=== PATIENT | female | born 2005 | race Caucasian/White ===

== ENCOUNTER 2024-09-15 23:20 | Emergency (ER) | payer MEDICAID, SELFPAY ==
[2024-09-15 23:21] VITALS: BMI 18.8
[2024-09-15 23:28] VITALS: BP 115/70; PULSE 86; RESP 18; TEMP 36.9; O2SAT 97
--- NOTE | 2024-09-15 23:38 | EDNOTE_ITS ---
<Statement entered by Izabella Lin MD - 09/16/24 22:04> As co-signing physician, I was present and available for consult prn. I concur with the plan and care as documented by the midlevel provider. Nausea/Vomit./Diarrhea-RME/HPI General Chief complaint: Nausea/Vomiting/Diarrhea Stated complaint: VOMITING Time Seen by Provider: 09/15/24 23:35 Source: patient Arrival date/time: 09/15/24 23:20 19-year-old female presents emergency department complaining of diffuse abdominal pain with nausea and vomiting has been ongoing for 2 days. Mode of arrival: ambulatory Limitations: no limitations Related Data Previous Rx's ?Medication ?Instructions ?Recorded ibuprofen 600 mg tablet 600 mg PO Q8H PRN pain #20 tabs 09/16/24 ondansetron 4 mg disintegrating 4 mg PO Q8H PRN nausea and 09/16/24 tablet vomiting #10 tabs Allergies Allergy/AdvReac Type Severity Reaction Status Date / Time Iodinated Contrast Media Allergy Verified 07/19/23 22:30 iodine Allergy Verified 07/19/23 22:30 Review of Systems Review of Systems Systems Reviewed: All systems reviewed, normal except as documented Constitutional Constitutional: Reports system reviewed and no additional complaints, except as documented, Denies body ache(s), Denies chills and Denies fever(s) Eyes Eyes: Reports system reviewed and no additional complaints, except as documented and Denies change in vision ENT Ears, Nose, Mouth, and Throat: Reports system reviewed and no additional complaints, except as documented, Denies disequilibrium, Denies dizziness, Denies sore throat and Denies vertigo Cardiovascular Cardiovascular: Reports system reviewed and no additional complaints, except as documented, Denies chest pain and Denies dyspnea Respiratory Respiratory: Reports system reviewed and no additional complaints, except as documented, Denies chest congestion, Denies cough and Denies dyspnea Gastrointestinal Gastrointestinal: Reports system reviewed and no additional complaints, except as documented, Reports abdominal pain, Reports nausea and Reports vomiting Musculoskeletal Musculoskeletal: Reports system reviewed and no additional complaints, except as documented, Denies abnormal gait and Denies arthralgias Integumentary/Breasts Skin/Breast: Reports system reviewed and no additional complaints, except as documented, Denies erythema, Denies rash and Denies wounds Neurologic Neurologic: Reports system reviewed and no additional complaints, except as documented, Denies abnormal gait, Denies disequilibrium, Denies dizziness and Denies vertigo Past Medical History Social History SMOKING STATUS: Never smoker ED Exam General Limitations: Present no limitations General appearance: Present alert and in no apparent distress Head Head exam: Present atraumatic Eye Eye exam: Present normal appearance, PERRL and EOMI ENT ENT exam: Present normal exam, normal oropharynx and mucous membranes moist Neck Neck exam: Present normal inspection, full ROM and trachea midline Chest Chest inspection: Present normal inspection and symmetric chest wall rise Respiratory Respiratory exam: Present normal lung sounds bilaterally Cardiovascular Cardiovascular exam: Present regular rate, normal rhythm and normal heart sounds Abdominal Exam Abdominal exam: Present soft and normal bowel sounds; Absent tenderness, Robert's sign or tenderness at McBurney's Point Extremities Exam Extremities exam: Present normal inspection and full ROM Back Exam Back exam: Present normal inspection and full ROM Neurological Exam Neurological exam: Present alert, oriented X3 and CN II-XII intact Psychiatric Psychiatric exam: Present normal affect and normal mood Skin Skin exam: Present warm, dry, intact and normal color Course Quality Measures none Orders Category Date Time Status CBC Stat Lab 09/15/24 23:58 Completed CMP [Comprehensive Metabolic Panel] Stat Lab 09/15/24 23:58 Completed Drug Screen,Urine Stat Lab 09/16/24 01:21 Completed HCG,Qualitative Serum Stat Lab 09/15/24 23:58 Completed Lipase Stat Lab 09/15/24 23:58 Completed Urinalysis, C/S if Indicated Stat Lab 09/16/24 01:21 Completed Ibuprofen Susp [Motrin Susp] Med 09/16/24 01:15 Discontinued 544 mg PO X1 ONE Ondansetron Odt [Zofran Odt] Med 09/15/24 23:39 Discontinued 4 mg PO X1 ONE Vital Signs Vital signs: Vital Signs Temperature 98.5 F 09/15/24 23:28 Pulse Rate 86 09/15/24 23:28 Respiratory Rate 18 09/15/24 23:28 Blood Pressure 115/70 09/15/24 23:28 Pulse Oximetry (%) 97 09/15/24 23:28 Oxygen Delivery Method Room Air 09/15/24 23:28 97% room air within normal limits Nausea/Vomiting/Diarrhea MDM Narrative MDM Narrative:: 19-year-old female presents emergency department complaining of diffuse abdominal pain with nausea and vomiting has been ongoing for 2 days. Patient's abdomen is soft and nontender. Patient appears nontoxic and is hemodynamically stable. CBC was unremarkable for any leukocytosis. CMP was unremarkable for any elevated LFTs or gross electrolyte abnormalities. Urinalysis was unremarkable. Likely viral gastroenteritis. Patient given Zofran for nausea and Motrin for pain and reported improvement in symptoms. Patient discharged instructed to follow-up with primary care provider return to emergency department for any worsening symptoms or as needed Patient data External records reviewed:: [facility] previous records Clinical information provided by:: patient and parent Social determinants that could affect healthcare access:: none Patient has the following chronic illnesses:: N/A How is presenting disease/condition affected by chronic disease/condition?: no chronic disease Evaluation data The following diagnostics were reviewed and interpreted by me:: lab results Lab and/or radiology exams considered but not ordered:: Ordered Interpretation Summary: Interpreted by me Medications / Prescriptions Medications / Prescriptions considered but not ordered:: Ordered Medication administrations:: Medication Administration History Discontinued Medications Ibuprofen (Ibuprofen Susp 100 Mg/[address] [facility] [place]) 544 mg 10 mg/kg (544 mg) PO X1 ONE Stop: 09/16/24 01:16 Last Admin: 09/16/24 01:18 Dose: 544 mg Documented By: CVL Ondansetron HCl (Ondansetron Odt 4 Mg Tabrap) 4 mg PO X1 ONE; Protocol Stop: 09/15/24 23:40 Last Admin: 09/15/24 23:59 Dose: 4 mg Documented By: CVL Given Consultations Consultation(s) initiated? (list below): No Diagnosis Nausea Differential Diagnosis: traveler's diarrhea, food poisoning, gastroenteritis, clostridium difficile infection, drug-induced nausea and vomiting and dehydration Most likely diagnosis given after review of the tests above:: Gastroenteritis Admission Indicated Admission indicated?: not indicated Admission Request Was there a request for admission?: No Disposition Plan Disposition Plan: Discharge Discharge Attestation Discharge Attestation: The patient and all family members were given an opportunity to ask questions and understood the discharge instructions. Discharge instructions specifically effects, indications for sooner follow up or return to the emergency department, and the expected course of current diagnosis. Patient condition: Stable Discharge Plan Plan Patient Disposition: HOME (Self Care) Disposition Comment: Stable Prescriptions/Referrals Prescriptions/Med Rec: New ibuprofen 600 mg tablet 600 mg PO Q8H PRN (Reason: pain) Qty: 20 0RF ondansetron 4 mg tablet,disintegrating 4 mg PO Q8H PRN (Reason: nausea and vomiting) Qty: 10 0RF Referrals: No Primary/Family,Physician [Primary Care Provider] - In 1 week Problem List Clinical Impression: Gastroenteritis Patient/Caregiver Discharge Instructions Discharge Activity: activity as tolerated Education Materials: ED Diet for Vomiting or ..., ED Gastroenteritis, Noninfectious Additional Instructions: Encourage fluids as tolerated. Take medication as prescribed. Follow-up with primary care provider in 24 to 48 hours. Return to emergency department for any worsening symptoms or as needed Print Language: Japanese Stand Alone Forms: Steff Award Info., Patient Portal Info Letter PA/FIRING PIN GAUGER Supervising Physician PA/FIRING PIN GAUGER Supervising Physician: Dr. Lin
[2024-09-15] MEDS: ONDANSETRON ODT 4 MG TABRAP PO (23:59)
[2024-09-16 00:22] LABS: Basophils % (Auto) 0 % (0-2.5); Eosinophils # (Auto) 0.1 Thou/mm3 (0.0-0.5); Eosinophils % (Auto) 1 % (0-10); Hematocrit 34.7 % (36.0-46.0); Hemoglobin 11.8 g/dL (12.0-16.0); Immature Granulocytes % (Auto) 0 % (0-0); Immature Granulocytes Auto 0.03 Thou/mm3 (0.00-0.00); Lymphocytes # (Auto) 1.2 Thou/mm3 (1.0-4.8); Lymphocytes % (Auto) 16 % (10-50); Mean Corpuscular Hemoglobin 28.1 pg (25.0-35.0); Mean Corpuscular Volume 83 fL (80-100); Monocytes # (Auto) 0.4 Thou/mm3 (0.0-0.8); Monocytes % (Auto) 5 % (0-12); Neutrophils # (Auto) 5.6 Thou/mm3 (1.8-7.7); Neutrophils % (Auto) 77 % (37-80); Nucleated Red Blood Cell % 0 /100 WBC (0); Platelet Count 303 Thou/mm3 (140-440); RDW Standard Deviation 38.8 fL (36.4-46.3); White Blood Count 7.2 Thou/mm3 (4.5-11.0)
[2024-09-16 00:43] LABS: Alanine Aminotransferase 15 U/L (10-49); Albumin/Globulin Ratio 2.1 (1.2-2.2); Alkaline Phosphatase 99 U/L (46-116); Anion Gap 10 (7-16); Aspartate Amino Transferase 18 U/L (0-34); BUN/Creatinine Ratio 19 Ratio (12-20); Bilirubin,Total 0.6 mg/dL (0.3-1.2); Blood Urea Nitrogen 15 mg/dL (9-23); Calcium 9.7 mg/dL (8.3-10.6); Calcium (Corrected) 9.7 mg/dL (8.5-10.1); Carbon Dioxide 24.7 mMol/L (20.0-31.0); Chloride 102 mMol/L (98-107); Creatinine (Component) 0.8 mg/dL (0.6-1.3); Estimated Creatinine Clearance 96.4 mL/min (>60); Globulin 2.4 gm/dL (2.3-3.5); Glucose 105 mg/dL (74-106); Lipase 37 U/L (12-53); Osmolality,Calculated 274 (275-295); Potassium 3.3 mMol/L (3.4-5.1); Sodium 137 mMol/L (136-145); Total Protein 7.4 gm/dL (5.7-8.2); eGFR > 60 See Note
[2024-09-16 01:13] LABS: HCG,Qualitative Serum Negative
[2024-09-16] MEDS: IBUPROFEN SUSP 100 MG/5 ML UDC 544 MG PO (01:18)
[2024-09-16 01:37] LABS: Collection Type, Urine Clean Catch
[2024-09-16 01:42] LABS: Bilirubin,Urine Negative (Negative); Blood,Urine Negative (Negative); Clarity,Urine Clear (Clear/Hazy); Color,Urine Yellow (Lt Yel-Yel); Culture Indicated,Urine Not Indicated; Glucose, Urine Negative (Negative); Hyaline Casts,Urine < 1 /hpf (0-1); Ketones,Urine 2+ (Negative); Leukocyte Esterase,Urine Positive (Negative); Nitrite,Urine Negative (Negative); Protein,Urine 1+ (Neg - Trace); RBC,Urine 9 /hpf (0-3); Specific Gravity,Urine 1.041 (1.001-1.035); Squamous Epithelial Cell,Urine 4 /hpf (0-5); Urobilinogen,Urine Negative mg/dL (0.0-1.0); WBC,Urine 7 /hpf (0-5)
[2024-09-16 01:50] LABS: Amphetamine/Methamp Scrn,U Negative (Negative); Barbiturate Screen,Urine Negative (Negative); Benzodiazepines Screen,Urine Negative (Negative); Benzoylecgonine Screen, Ur Negative (Negative); Fentanyl Screen,Urine Negative (Negative); Opiate Screen,Urine Negative (Negative); THC Screen,Urine Negative (Negative)
[2024-09-16 02:22] VITALS: RESP 18
== END 2024-09-16 02:23 | disposition home or self-care (01) ==
PROVIDERS: Emergency Provider Emergency Medicine
DX: K52.9 Noninfective gastroenteritis and colitis, unspecified (principal)
CPT/HCPCS: 36415; 80053; 80307; 81001; 83690; 84703; 85025; 99283; Q0162; A9270

== ENCOUNTER 2025-07-09 01:36 | Emergency (ER) | payer OTHER, MEDICAID, SELFPAY ==
[2025-07-09 01:38] VITALS: BP 111/66; PULSE 90; PULSE 92; RESP 18; TEMP 36.6; O2SAT 100; O2SAT 97; BMI 21.6
--- NOTE | 2025-07-09 01:41 | PD.EDABDPN ---
ED Abdominal Pain RME/HPI General Chief Complaint: Abdominal Pain Stated complaint: ABD PAIN Time seen by provider: 07/09/25 01:41 Arrival date/time: 07/09/25 01:36 RME / HPI RME / HPI narrative: Dr. Harman?s Main ED Evaluation: 19yo female with a history of anxiety, depression BIBA from home presents to the ED for complaints of lower abdominal pain and chest pain. Patient states she was sleeping when she woke up having sudden lower abdominal pain and generalized chest pain. Patient reports associated nausea. She denies any other associated symptoms. She notes having anxiety just prior to going to bed last night due to trying on wedding dresses. She is compliant with her Zoloft and occasionally takes Hydroxizine. PSH includes appendectomy. Related Data Previous Rx's ?Medication ?Instructions ?Recorded ibuprofen 600 mg tablet 600 mg PO Q8H PRN pain #20 tabs 09/16/24 ondansetron 4 mg disintegrating 4 mg PO Q8H PRN nausea and 09/16/24 tablet vomiting #10 tabs Allergies Allergy/AdvReac Type Severity Reaction Status Date / Time Iodinated Contrast Media Allergy Verified 07/09/25 01:43 iodine Allergy Verified 07/09/25 01:43 Review of Systems Review of Systems Systems Reviewed: All systems reviewed, normal except as documented ED Exam Narrative Physical exam: Generally patient is alert and anxious, heart regular rate and rhythm, lungs clear to auscultation equal bilaterally, abdomen soft bowel sounds present nondistended very mild diffuse tenderness but a rather benign exam. Skin is cool pale and dry, neurologic exam [place] Coma Scale is 15 without focal motor deficit Course Quality Measures none Orders Category Date Time Status Alcohol, Blood Medical Stat Lab 07/09/25 01:51 Completed Beta HCG,Quantitative Stat Lab 07/09/25 01:51 Completed CBC Stat Lab 07/09/25 01:51 Completed CMP [Comprehensive Metabolic Panel] Stat Lab 07/09/25 01:51 Completed Drug Screen,Urine Stat Lab 07/09/25 01:42 Ordered UA [Urinalysis] Stat Lab 07/09/25 01:42 Ordered LORazepam [Ativan] Med 07/09/25 01:42 Pending 2 mg PO X1 ONE Vital Signs Vital signs: Vital Signs Temperature 97.8 F 07/09/25 01:38 Pulse Rate 92 07/09/25 01:38 Respiratory Rate 18 07/09/25 01:38 Blood Pressure 111/66 07/09/25 01:38 Pulse Oximetry (%) 100 07/09/25 01:38 Oxygen Delivery Method Room Air 07/09/25 01:38 Abdominal Pain [facility] Narrative MDM Narrative:: Scribe Attestation: 07/09/25 - Sonia Keys, am scribing for and in the presence of Dr. Harman. I interpreted all labs. is negative. Patient received Ativan 2 mg p.o. with benefit. Patient is suffering from anxiety. She is already on Zoloft. She is to continue current medications. Patient did not give a urine for urinary tox screen and urinalysis. Patient will be discharged in stable condition. Patient data External records reviewed:: [facility] previous records (Per chart review, patient was seen here on 09/15/24 for gastroenteritis.) and EMS form Clinical information provided by:: patient and EMS Social determinants that could affect healthcare access:: mental health Patient has the following chronic illnesses:: anxiety, depression How is presenting disease/condition affected by chronic disease/condition?: exacerbated by Evaluation data The following diagnostics were reviewed and interpreted by me:: lab results Lab and/or radiology exams considered but not ordered:: none Interpretation Summary: none Medications / Prescriptions Medications or Prescriptions considered but not ordered:: none Medication administrations:: Medication Administration History Lorazepam (Lorazepam 0.5 Mg Tablet) 2 mg PO X1 ONE Stop: 07/09/25 01:43 see above Consultations Consultation(s) initiated? (list below): No Diagnosis Differential diagnosis abdominal pain: other (See MDM) Most likely diagnosis given after review of the tests above:: see clinical impression below Admission Indicated Admission indicated?: not indicated Admission Request Was there a request for admission?: No Disposition Plan Disposition Plan: Discharge Discharge Attestation Discharge Attestation: The patient and all family members were given an opportunity to ask questions and understood the discharge instructions. Discharge instructions specifically effects, indications for sooner follow up or return to the emergency department, and the expected course of current diagnosis. Patient condition: Stable Discharge Plan Plan Patient Disposition: HOME (Self Care) Prescriptions/Referrals Prescriptions/Med Rec: No Action ibuprofen 600 mg tablet 600 mg PO Q8H PRN (Reason: pain) Qty: 20 0RF ondansetron 4 mg tablet,disintegrating 4 mg PO Q8H PRN (Reason: nausea and vomiting) Qty: 10 0RF Problem List Clinical Impression: Anxiety reaction Patient/Caregiver Discharge Instructions Education Materials: ED Anxiety Reaction Additional Instructions: Continue all current medications. Follow-up with your doctor for further treatment and evaluation. Print Language: Danish Stand Alone Forms: Steff Award Info., Patient Portal Info Letter
[2025-07-09 01:56] LABS: Basophils # (Auto) 0.0 Thou/mm3 (0.0-0.2); Basophils % (Auto) 0 % (0-2.5); Eosinophils # (Auto) 0.1 Thou/mm3 (0.0-0.5); Eosinophils % (Auto) 1 % (0-10); Hematocrit 39.4 % (36.0-46.0); Hemoglobin 13.4 g/dL (12.0-16.0); Immature Granulocytes Auto 0.04 Thou/mm3 (0.00-0.00); Lymphocytes # (Auto) 1.4 Thou/mm3 (1.0-4.8); Lymphocytes % (Auto) 10 % (10-50); Mean Corpuscular HGB Conc 34.0 g/dl (31.0-37.0); Mean Corpuscular Hemoglobin 28.3 pg (25.0-35.0); Mean Corpuscular Volume 83 fL (80-100); Monocytes # (Auto) 0.8 Thou/mm3 (0.0-0.8); Monocytes % (Auto) 5 % (0-12); Neutrophils # (Auto) 12.3 Thou/mm3 (1.8-7.7); Neutrophils % (Auto) 84 % (37-80); Nucleated Red Blood Cell # 0.00 Thou/mm3 (0.00-0.00); Nucleated Red Blood Cell % 0 /100 WBC (0); Platelet Count 264 Thou/mm3 (140-440); RDW Standard Deviation 38.6 fL (36.4-46.3); Red Blood Count 4.74 Miln/mm3 (4.00-5.20); White Blood Count 14.6 Thou/mm3 (4.5-11.0)
[2025-07-09 02:22] LABS: Alanine Aminotransferase 20 U/L (10-49); Albumin, Serum 5.0 gm/dL (3.5-5.0); Albumin/Globulin Ratio 2.2 (1.2-2.2); Alcohol, Blood Medical < 3.0 mg/dL (0-10.0); Alkaline Phosphatase 103 U/L (46-116); Anion Gap 15 (7-16); Aspartate Amino Transferase 25 U/L (0-34); BUN/Creatinine Ratio 18 Ratio (12-20); Beta HCG,Quantitative < 1 mIU/mL (<5.0); Bilirubin,Total 0.6 mg/dL (0.3-1.2); Blood Urea Nitrogen 16 mg/dL (9-23); Calcium 10.0 mg/dL (8.3-10.6); Calcium (Corrected) 10.0 mg/dL (8.5-10.1); Carbon Dioxide 17.6 mMol/L (20.0-31.0); Chloride 108 mMol/L (98-107); Creatinine (Component) 0.9 mg/dL (0.6-1.3); Estimated Creatinine Clearance 89.7 mL/min (>60); Globulin 2.3 gm/dL (2.3-3.5); Glucose 150 mg/dL (74-106); Osmolality,Calculated 285 (275-295); Potassium 4.0 mMol/L (3.4-5.1); Sodium 141 mMol/L (136-145); Total Protein 7.3 gm/dL (5.7-8.2); eGFR > 60 See Note
== END 2025-07-09 03:05 | disposition home or self-care (01) ==
LOC: SERX 03:58
PROVIDERS: Emergency Provider Emergency Medicine
DX: F41.1 Generalized anxiety disorder (principal)
CPT/HCPCS: 36415; 80053; 80307; 80320; 81001; 84702; 85025; 99283; G0480